=== PATIENT | female | born 1960 | race Two or more races ===

== ENCOUNTER 2020-08-21 09:41 | Outpatient (CLI) | payer OTHER | END 2020-08-21 09:58 | disposition home or self-care (01) | LOC: NUCLEAR 09:41 | PROVIDERS: ATTEND Internal Medicine | DX: I87.2 Venous insufficiency (chronic) (peripheral) (principal) ==

== ENCOUNTER 2020-10-06 11:45 | Inpatient (IN) | payer OTHER ==
[2020-10-06] MEDS ORDERED: PRILOSEC OTC20 MG PO (14:03)
== END 2020-10-10 10:00 | disposition home or self-care (01) | DRG 741 ==
LOC: O/R 10-09 07:35 → OB/GYN 10-09 11:45 → SURG 10-09 21:37
PROVIDERS: ADMIT Obstetrics & Gynecology Gynecologic Oncology; ATTEND Obstetrics & Gynecology Gynecologic Oncology
PROC: 0UT24ZZ Resection of Bilateral Ovaries, Percutaneous Endoscopic Approach (ICD-10-PCS; 2020-10-09)
PROC: 0UT74ZZ Resection of Bilateral Fallopian Tubes, Percutaneous Endoscopic Approach (ICD-10-PCS; 2020-10-09)
PROC: 07BC4ZZ Excision of Pelvis Lymphatic, Percutaneous Endoscopic Approach (ICD-10-PCS; 2020-10-09)
PROC: 0UT94ZZ Resection of Uterus, Percutaneous Endoscopic Approach (ICD-10-PCS; principal; 2020-10-09 18:00)
DX: C54.1 Malignant neoplasm of endometrium (principal); R59.9 Enlarged lymph nodes, unspecified; D25.9 Leiomyoma of uterus, unspecified